=== PATIENT | female | born 1960 | race Asian ===

== ENCOUNTER → 2017-01-28 18:30 | Outpatient (CLI) | payer BC ==
[2013-06-23 13:17] VITALS: BMI 35.1
[~2017-01-28 18:30] MED LIST: COZAAR100 MG PO; DICLOFENAC SODI50 MG PO; FLEXERIL10 MG PO; GLIMEPIRIDE1 MG PO; GLUCOTROL 5 MG T5 MG; NORCO 10/325 TA1 TA1 PO; VERAPAMIL HCL40 MG; VERELAN120 MG PO; VICODIN ES 7.51 EAC1 PO
== END | disposition home or self-care (01) ==
LOC: D.LABREF 18:30
DX: M17.0 Bilateral primary osteoarthritis of knee (principal); Z11.8 Encounter for screening for other infectious and parasitic diseases

== ENCOUNTER 2017-02-17 11:00 | Inpatient (IN) | payer BC ==
[~2017-02-17] VITALS: Ht 149.9 cm; Wt 77.3 kg
--- NOTE | ~2017-02-17 | OP ---
PATIENT NAME: BARNEY WAITE MEDICAL RECORD: [id number] :56 LOCATION:D.[facility] [id number] ADMISSION DATE:02/23/17 SURGEON: GERALDO HERRERA DO OPERATION DATE: 02/23/17 PROCEDURE PERFORMED: Left total knee arthroplasty. INDICATION: The patient is a 56-year-old female who has attempted nonoperative treatment for her severe left knee osteoarthritis. She has attempted all forms of nonoperative management and has failed them. She said she is ready to have the left total knee replacement done. She has received medical clearance by her primary doctor as well. PREPROCEDURE DIAGNOSIS: Left knee endstage osteoarthritis. POSTPROCEDURE DIAGNOSIS: Left knee endstage osteoarthritis. SURGEON: Geraldo Herrera DO WAREHOUSE INCENTIVE SELECTOR: Caitlin Humphries APN DESCRIPTION OF PROCEDURE: The patient had adductor canal block as well as popliteal block by anesthesia. General anesthesia was given to the patient. The patient's left lower extremity was prepped and draped in the usual manner. The tourniquet was elevated to 300 millimeters of mercury. Prior to this, a timeout was performed and all parties were in agreeance that the left knee was the correct knee, and that we had the correct patient in the room. After the tourniquet was inflated, a midline incision through the skin and subcutaneous tissue was done. Hemostasis was obtained with electrocauterization. The quadriceps tendon was split in the middle. The incision was carried medial to the patella and down the tibial tubercle. The fat pad was excised. The anterior third of both the medial and lateral meniscus was excised. A rongeur was placed behind the patella utilizing the patella as a guide. The articular surface of the patella was osteotomized with an oscillating saw. It was measured and marked at that time. The distal femur cut was then performed. At that time the canal was entered in the distal femur and it was irrigated and sucked out to avoid excessive pressure. The distal femur cutting block was then applied and two pins made it secure and 11 millimeters of distal femur was resected. Attention was then drawn to the tibia. Proximal tibia osteotomy cutting guide was used and utilizing external tibia alignment jig and fixed tibial jig with two pins in the proximal tibia. The proximal tibia was then removed along with the posterior two thirds of both the medial and lateral meniscus. Soft tissues were cleaned out. The femur was then readdressed and sized and the 4 in 1 cutting guide was applied and the cuts were made anterior. The chamfer cut as well posteriorly. Trials were then placed on the femur as well as the tibia and the soft tissue was balanced to appropriate size. The proximal tibia sized, drilled and punched. Appropriate size template was affixed to the tibia. After the tibia was prepped, the patella was prepared and the appropriate size was noted. Three drill holes were done in the patella. Cement was then mixed on the back table and the knee was copiously irrigated. Cement was pressurized and applied to cancellous bone as well as the tibial components as well as the patella. Components were put in place, excess cement was removed using osteotome mallet . The knee was held once the cement was placed as well. The trial poly was placed and the knee was held in extension until the cement was hardened. Once the cement hardened, the knee was inspected thoroughly and excess cement was found and removed. Appropriate thickness polyethylene liner was then inserted as well as a clip to hold it in place. The OPERATIVE REPORT [id number] BARNEY WAITE knee was taken through full range of motion and found to be stable in all ranges. The patella was found to track properly. The fascia capsule was reapproximated with multiple interrupted fibjnv-ps-gwyia #2 sutures. The subcutaneous tissue was closed with multiple interrupted 2-0 Vicryl sutures. The skin was then reapproximated with ZipLine dressing, Adaptic, 4x4s, and ABD and Ramy wrap were applied. The patient was transferred from the operating room to recovery room in satisfactory condition having tolerated the procedure well. Total tourniquet time during the procedure was 1 hour and 9 minutes. Blood loss 15 milliliters. Sizes on the components were femur 60; tibia 67; 14 e-poly and 28 patella. GERALDO HERRERA DO CC: [id number] DICTATION DATE: 02/23/17 1400 ELECTRONIC TESTER: KEANU 02/23/17 1528 [facility] [address] [place] [address]
[2017-02-17 12:41] LABS: BASOPHILS 0.6 % (0-2); EOSINOPHILS 1.9 % (0-7); HEMATOCRIT 42.8 % (36.0-48.0); HEMOGLOBIN 14.4 g/dL (12-16); IMMATURE GRANULOCYTES 0.1 % (0-5); LYMPHOCYTES 38.7 % (15-50); MCH 29.4 pg (26.0-34.0); MCHC 33.6 g/dL (31.0-37.0); MCV 87.3 fL (80.0-100.0); MEAN PLATELET VOLUME 8.9 fL (7.4-10.4); MONOCYTES 7.2 % (2-11); NEUTROPHILS 51.5 % (40-80); PLATELET COUNT 257 10x3/uL (130-400)
[2017-02-17 12:48] LABS: CALC OSMOLALITY 287 mosm/kg (275-300); CALCIUM 9.5 mg/dL (8.5-10.1); CARBON DIOXIDE 28.3 mmol/L (21.0-32.0); CHLORIDE - SERUM 106 mmol/L (98-107); CREATININE - SERUM 0.7 mg/dL (0.6-1.3); GLUCOSE 106 mg/dL (74-106); POTASSIUM - SERUM 4.8 mmol/L (3.5-5.1); SODIUM 144 mmol/L (136-145); UREA NITROGEN 14 mg/dL (7-18); eGFR NON AFRICAN AMERICAN > 90 mL/min (90-120)
[2017-02-17 12:54] LABS: APTT 26.7 SECONDS (22.8-39.4); INR 0.92 (0.85-1.17); PROTIME 12.2 SECONDS (11.6-15.0)
[2017-02-17 13:07] LABS: APPEARANCE CLEAR (CLEAR); BILIRUBIN NEGATIVE (NEGATIVE); COLOR YELLOW (YELLOW); GLUCOSE 250 mg/dL (NEGATIVE); KETONE NEGATIVE (NEGATIVE); LEUKOCYTE ESTERASE NEGATIVE (NEGATIVE); NITRITE NEGATIVE (NEGATIVE); PROTEIN NEGATIVE (NEGATIVE); SPECIFIC GRAVITY 1.015 (1.005-1.020); UROBILINOGEN NORMAL (NORMAL)
[2017-02-23] MEDS ORDERED: ACETAMINOPHEN500 M1 PO (06:12)
[2017-02-23] MEDS ORDERED: TOUJEO SOL300 UNIT/1 SC (06:14)
[2017-02-23] MEDS ORDERED: FARXIGA5 MG PO (06:15)
[2017-02-23 06:18] VITALS: BP 156/77; BMI 34.4
--- NOTE | 2017-02-23 08:02 | NUR ---
LEFT LEG AND FOOT WASHED WITH HIBICLENS AND ALCOHOL PRIOR TO CHLORPREP PER LADI
[2017-02-23 10:29] VITALS: BP 116/70
--- NOTE | 2017-02-23 10:58 | NUR ---
PT REC'D FROM RECOVERY VIA BED. ACCOMPANIED BY PACU STAFF. AAOX4. SLIGHTLY DROWSY, BUT EASILY AROUSED. NO COMPLAINTS OF PAIN. ABLE TO MOVE LLE, BUT NOT TOES. NO FEELING TO LLE. EXPLAINED TO PT AND FAMILY AT BEDSIDE THAT THIS TIME NORMAL DUE TO THE BLOCK SHE HAD. +2 PEDAL PULSES BILAT. DRESSING TO LLE CDI WITH ASHANTI HOSE OVER DRESSING. J-LOOP TO PIV IN R FOREARM CHANGED AND CONNECTED TO 1/2NS PER OCT. VSS. BED LOW, CALL LIGHT IN REACH, DENIES NEEDS. CPOC.
--- NOTE | 2017-02-23 12:19 | NUR ---
AT 0955 FSBS 112 MG/DL
--- NOTE | 2017-02-23 13:04 | NUR ---
PT RESTING IN BED WITH DAUGHTER AT BEDSIDE. EYES CLOSED, RESP EVEN AND UNLABORED, NO SIGNS OF DISTRESS, SCD TO R LEG ON, +2 PEDAL PULSES BILAT, AND VSS. BED LOW, CALL LIGHT IN REACH, CPOC.
[2017-02-23 17:31] VITALS: BP 150/66; Ht 149.9 cm; Wt 77.3 kg
--- NOTE | 2017-02-23 19:44 | NUR ---
PT LYING IN BED, EYES CLOSED, EVEN RISE AND FALL OF CHEST. PT FAMILY IN ROOM WITH HER. NO SIGNS OF DISTRESS, BED IN LOW POSITION, NO OTHER NEEDS AT THIS TIME
[2017-02-23 20:00] VITALS: BP 133/59
[2017-02-24] VITALS: BP 126/61
[2017-02-24 04:00] VITALS: BP 150/68
[2017-02-24 06:13] LABS: HEMATOCRIT 39.4 % (36.0-48.0); HEMOGLOBIN 12.8 g/dL (12-16); MCHC 32.5 g/dL (31.0-37.0); MCV 89.3 fL (80.0-100.0); RBC 4.41 10x6/uL (4.00-5.40); RDW 12.1 % (11.5-14.5); WBC 8.1 10x3/uL (4.8-10.8)
[2017-02-24 08:07] VITALS: BP 139/79
--- NOTE | 2017-02-24 08:29 | NUR ---
CPM REMOVED AT THIS TIME. SCD TO RIGHT LEG AND BED ALARM ON. PRN ULTRAM ADMINISTERED FOR PAIN, WELL SCHEDULED MEDICATIONS. DAUGHTER AT BEDSIDE. IV PATENT. CALL LIGHT IN REACH AND INCENTIVE SPIROMETER IN USE. WILL CONTINUE WITH PLAN OF CARE.
--- NOTE | 2017-02-24 11:46 | NUR ---
4 UNITS OF HUMALOG ADMINISTERED FOR BLOOD SUGAR OF 165 PER SLIDING SCALE.
[2017-02-24 12:17] VITALS: BP 142/68
--- NOTE | 2017-02-24 13:51 | NUR ---
Patient Name: BARNEY WAITE Admission Status: Elective Accout number: [id number] Admission Date: 02-23-2017 : 1960 Admission Diagnosis: Attending: DESMOND Current LOS: 1 Anticipated DC Date: Planned Disposition: Home Primary Insurance: [employer] OUT OF STATE Discharge Planning Comments: CM met with patient to assess discharge planning needs. Patient lives at home with her (Ani), who will drive her home at time of discharge. Patient would like to use [facility]. Patient will need a walker at discharge. Patient has 4 steps in her home. Patient states that her CPM machine is at home and set up. CM will continue to follow and assist. PCP: Hien christine Ani (spouse) [phone] [place] Encaser: Richa Ortega * Is the patient Alert and Oriented? Yes 0 * How many steps to enter\exit or inside your home? 4 0 * PCP HIEN 0 * Pharmacy [facility] * Preadmission Environment Home with Family 0 * ADLs Independent 0 * Equipment Shower Chair 0 * List name and contact numbers for known caregivers / representatives who currently or will assist patient after discharge: ANI WAITE (SPOUSE) [phone] 0 * Community resources currently utilized None 0 * Additional services required to return to the preadmission environment? Yes 0 * Can the patient safely return to the preadmission environment? Yes 0 * Has this patient been hospitalized within the prior 30 days at any hospital? No 0 Grand Total: 0
[2017-02-24 16:14] VITALS: BP 131/61
--- NOTE | 2017-02-24 17:12 | NUR ---
PRN PERCOCET ADMINISTERED AT THIS TIME FOR PAIN.
--- NOTE | 2017-02-24 18:05 | NUR ---
CPM APPLIED AT THIS TIME TO LEFT LEG. DENIES FURTHER NEEDS. CALL LIGHT IN REACH.
--- NOTE | 2017-02-24 19:40 | NUR ---
PT IS LYING AWAKE IN BED, CPM ON WITH ONLY 30MINS LEFT, PT NEEDED ASSISTANCE WITH GETTING UP TO BATHROOM, DID VERY WILL WITH USE OF WALKER. BED IN LOW POSITIOM CALL LIGHT WITHIN REACH
[2017-02-24 20:00] VITALS: BP 153/78
[2017-02-25 04:00] VITALS: BP 128/77
[2017-02-25 06:51] LABS: HEMATOCRIT 38.8 % (36.0-48.0); HEMOGLOBIN 12.5 g/dL (12-16); MCH 28.7 pg (26.0-34.0); MCHC 32.2 g/dL (31.0-37.0); MCV 89.2 fL (80.0-100.0); RBC 4.35 10x6/uL (4.00-5.40); RDW 12.1 % (11.5-14.5); WBC 9.2 10x3/uL (4.8-10.8)
[2017-02-25] MEDS ORDERED: PERCOCET 10/3251 TA1 PO (07:55)
[2017-02-25] MEDS ORDERED: ELIQUIS2.5 MG PO (07:55)
--- NOTE | 2017-02-25 08:01 | NUR ---
SCHEDULED MEDICATIONS ADMINISTERED AT THIS TIME WITH PRN PEROCOCET AT THIS TIME. ASSESSMENT PERFORMED PER FLOWSHEET. DAUGHTER AT BEDSIDE. SCD'S AND BED ALARM ON. WILL CONTINUE WITH PLAN OF CARE.
[2017-02-25 08:18] VITALS: BP 159/83
[2017-02-25] MEDS ORDERED: KEFLEX500 MG PO (08:20)
--- NOTE | 2017-02-25 08:40 | NUR ---
CPM REMOVED AT THIS TIME.
--- NOTE | 2017-02-25 10:18 | NUR ---
CM set up outpatient PT at [facility] per patients request. Patient's PT appointment is for WednesdayFebruary 26 at 9:45am appointment card given. Rolling walker ordered from [facility] and will be delivered to hospital
--- NOTE | 2017-02-25 10:21 | NUR ---
patient being discharged today with her to drive home in personal car
--- NOTE | 2017-02-25 10:24 | NUR ---
PRN ULTRAM ADMINISTERED FOR PAIN. UP IN CHAIR PER PHYSICAL THERAPY WITH DAUGHTER AT BEDSIDE. CALL LIGHT IN REACH, WILL CONTINUE WITH PLAN OF CARE.
[2017-02-25 12:49] VITALS: BP 126/68
--- NOTE | 2017-02-25 14:20 | NUR ---
ASHANTI RICHARDSON APPLIED TO BLE. IV TO RIGHT AC D/C WITH CATH TIP INTACT. DISCHARGE PAPERWORK REVIEWED. DENIES QUESTIONS OR CONCERNS. CALL LIGHT IN REACH, WILL CONTINUE WITH PLAN OF CARE.
== END 2017-02-25 14:30 | disposition home or self-care (01) | DRG 470 ==
LOC: D.SDCHOLD 11:00 → D.MS 02-23 05:10 → D.SDCHOLD 02-23 07:30 → D.MS 02-23 10:16 → D.SDCHOLD 02-23 11:00 → D.MS 02-25 14:30
PROVIDERS: ADMIT Orthopaedic Surgery
PROC: 0SRD0J9 Replacement of Left Knee Joint with Synthetic Substitute, Cemented, Open Approach (ICD-10-PCS; principal; 2017-02-23 07:30)
DX: M17.12 Unilateral primary osteoarthritis, left knee (principal); E11.9 Type 2 diabetes mellitus without complications; Z79.4 Long term (current) use of insulin; I10 Essential (primary) hypertension

== ENCOUNTER 2017-05-14 05:35 | Inpatient (IN) | payer BC ==
[2017-05-13 16:00] LABS: APPEARANCE CLEAR (CLEAR); BILIRUBIN NEGATIVE (NEGATIVE); COLOR YELLOW (YELLOW); GLUCOSE 1000 mg/dL (NEGATIVE); KETONE NEGATIVE (NEGATIVE); NITRITE NEGATIVE (NEGATIVE); PROTEIN NEGATIVE (NEGATIVE); SPECIFIC GRAVITY 1.015 (1.005-1.020); UROBILINOGEN NORMAL (NORMAL)
[2017-05-13 16:14] LABS: BASOPHILS 0.6 % (0-2); EOSINOPHILS 4.3 % (0-7); HEMATOCRIT 41.7 % (36.0-48.0); HEMOGLOBIN 13.8 g/dL (12-16); IMMATURE GRANULOCYTES 0.1 % (0-5); LYMPHOCYTES 46.5 % (15-50); MCH 28.3 pg (26.0-34.0); MCHC 33.1 g/dL (31.0-37.0); MCV 85.6 fL (80.0-100.0); MEAN PLATELET VOLUME 8.6 fL (7.4-10.4); MONOCYTES 5.5 % (2-11); PLATELET COUNT 256 10x3/uL (130-400); RBC 4.87 10x6/uL (4.00-5.40); RDW 12.2 % (11.5-14.5); WBC 6.8 10x3/uL (4.8-10.8)
[~2017-05-14 05:35] MED LIST changes: +ACETAMINOPHEN500 M1 PO; +ELIQUIS2.5 MG PO; +FARXIGA5 MG PO; +KEFLEX500 MG PO; +PERCOCET 10/3251 TA1 PO; +TOUJEO SOL300 UNIT/1 SC; +TYLENOL W/CODEI1 TAB PO
[2017-05-14 10:56] VITALS: BP 145/73; BMI 32.4
[2017-05-14 11:58] LABS: CALC OSMOLALITY 282 mosm/kg (275-300); CALCIUM 9.2 mg/dL (8.5-10.1); CARBON DIOXIDE 28.8 mmol/L (21.0-32.0); CHLORIDE - SERUM 104 mmol/L (98-107); CREATININE - SERUM 0.8 mg/dL (0.6-1.3); GLUCOSE 100 mg/dL (74-106); POTASSIUM - SERUM 4.8 mmol/L (3.5-5.1); SODIUM 141 mmol/L (136-145); UREA NITROGEN 18 mg/dL (7-18); eGFR NON AFRICAN AMERICAN 78 mL/min (90-120)
[2017-05-14 18:20] VITALS: BP 104/56
[2017-05-14 18:32] VITALS: BP 104/56; BMI 32.4
--- NOTE | 2017-05-14 19:18 | NUR ---
PT IS LYING IN BED ON RT SIDE, BED IN LOW POSITION CALL LIGHT IN REACH, NOSIGNS OF DISTRESS, SON CAME TO CHECK ON PT. NO OTHER NEEDS AT THIS TIME. CONTINUE WITH CARE PLAN
--- NOTE | 2017-05-14 20:41 | NUR ---
WENT TO GIVE PT SCHEDULED MEDS AND NOTICED PT BPIS TRENDING DOWN SINCE 1900. BP AT 1922 WAS 105/64, 1937-95/49, 1952- 98/58, 2007 -87/54 AND 2022-/, DR HERRERA WAS PT'S SURGEON, CALLED AND WAS ADVISED TO GIVE 500 BOLUS AND IF NO CHANGE GIVE NARCAN. KYLER MOHAN
--- NOTE | 2017-05-14 21:40 | NUR ---
RECIEVED CALL FROM CHECKING ON PT AND V/S. INFORMED HIM BP HAS BEEN TRENDING UP WITH SOME LOW PRESSURES IIN BETWEEN. DR STATED CONTINUE WITH DAILY ROUTINE
--- NOTE | 2017-05-14 21:41 | NUR ---
PT LYING IN BED, EVEN RISE AND FALL OF CHEST, NO SIGNS OF DISTRESS. CONTINUE TO MONITOR
--- NOTE | 2017-05-14 23:35 | NUR ---
ASSESSED, PT IS ASLEEP WITH NO DISTRESS AND EASY RESPIRATIONS. THE CPM MACHINE IS AT THE BEDSIDE, THERE IS NO O2 SET UP. THE BED IS LOW, RAILS UP X'S 2 WITH THE CALL LIGHT AT HAND.
[2017-05-15] VITALS (7 sets, daily range): BP systolic 103–174; BP diastolic 59–86
--- NOTE | 2017-05-15 02:56 | NUR ---
WENT TO ASSIST PT WITH BED DELGADO. PT STATED PAIN AT 4, PT BP IS 82/66TOLD PT NOT GIVING PAIN MED DUE TO BP GOING BACK AND FORTH, SPOKE TO CHARGE NURSE ADVISED TO GIVE HALF OF TORADOL
[2017-05-15 04:49] LABS: HEMATOCRIT 34.5 % (36.0-48.0); HEMOGLOBIN 11.1 g/dL (12-16); MCH 27.7 pg (26.0-34.0); MCHC 32.2 g/dL (31.0-37.0); MEAN PLATELET VOLUME 8.5 fL (7.4-10.4); RBC 4.01 10x6/uL (4.00-5.40); RDW 12.3 % (11.5-14.5); WBC 5.9 10x3/uL (4.8-10.8)
--- NOTE | 2017-05-15 07:40 | NUR ---
PT AOX4 RESP EVEN AND NONLABORED PT DENIES NEEDS AT THIS TIME IV TO RIGHT HAND PATENT AND INTACT AT THIS TIME SRX2 BED AT LOWEST SETTING CALL LIGHT WITHIN REACH WILL CONTINUE TO MONITOR
--- NOTE | 2017-05-15 08:02 | OP ---
PATIENT NAME: BARNEY OLMOS MEDICAL RECORD: [id number] :56 LOCATION:D.[facility] [id number] ADMISSION DATE:05/14/17 SURGEON: CITLALI HERRERA DO DATE OF OPERATION: 05/14/2017 PROCEDURE PERFORMED: Right total knee arthroplasty. PREOPERATIVE DIAGNOSIS: Right knee end-stage degenerative joint disease. POSTOPERATIVE DIAGNOSIS: Right knee end-stage degenerative joint disease. INDICATIONS: Ms. Olmos is a 56-year-old female that presented in my office in February and underwent a left total knee arthroplasty. She had severe varus deformity and severe wsiy-nl-tldg arthritis. Prior to my arrival here, she was on schedule to get a total knee done. She wanted to get the right knee done after the left knee in several weeks after the left knee was done. She was scheduled for this right knee. She understood the risks and benefits of procedure and decided to proceed forth with it. DESCRIPTION OF PROCEDURE: The patient was in the preoperative area, given a block by anesthesia and taken to the operative suite, given general anesthetic and placed in supine position and intubated. The right leg was then identified, prepped and draped. Timeout was performed. The patient was given a gram of Ancef prior to incision. Everyone was in agreement with the timeout with the correct side, site and patient. Once this was done, the incision was marked out in the midline of the anterior knee. The Ioban was then placed around the circumference of her right knee. Once this was done, the leg was elevated, Esmarch was used to exsanguinate the leg and the knee was flexed, and tourniquet was inflated to 350 mmHg. An Esmarch was then removed and an incision was made down to the capsule and a knife was exchanged to do the capsulotomy in a medial parapatellar approach. Once this was done, the fat pad was removed and the knee was extended, and the patella was sized and milled down. The knee was then flexed and retractors were placed medial and lateral to the femur and the femoral canal was entered with a reamer. The distal femur was then cut with the cutting block at 11-mm. After this was done, the tibia was then cut and then extension block was unable to fit and so 2 more millimeters of the tibia were cut. Once this was done, the extension block fit well. The femur was then sized to be 57.5 and a 4-in-1 cutting block guide was placed after the drill holes were made through the sizer. The anterior femur, the anterior chamfer cut, and the posterior, and the posterior chamfer cuts were then made. Once this was done, the trial was put in place and a 10 poly with tibial tray was floated into the knee, ranged, and the rotation was marked. This was then removed. The knee was flexed and the holes were drilled in the femur for the prosthesis. The knee was extended and the patella was drilled. Once this was done, tibia was exposed again with maximal flexion of the knee and sized to be a 63, and tibia was reamed and punched, then irrigated very thoroughly while the cement was mixing. Cement was then placed into the tibia and tibial implant and implanted. The excess cement was removed. It was impacted and excess cement was removed once again. The femur was then placed, a press-fit femur 57.5 was placed and the knee was brought to extension with the poly in between the femur and tibia, and the patella was cemented into place as well, and it was held with the squeezer while the cement dried. Once the cement had hardened, the knee was ranged and the poly was lifting off and deep flexion. The PCL was then pie crusted and a pie was placed, this time with an poly and seemed to be very stable in flexion and extension and be very well balanced. A decision was made OPERATIVE REPORT [id number] BARNEY OLMOS to use a 10 poly on this patient with vitamin E infused. The poly was then placed and the locking mechanism put into place on the tibial tray. Once this was done, the tourniquet was let down at 59 minutes, and after coagulation was made Michael was placed about the knee. The knee was in flexion. Capsule was closed with #1 pop offs in dkygtp-kb-tamzq fashion. The capsule was then irrigated and Michael was placed on that, and then the skin was closed with 2-0 Vicryl in inverted interrupted fashion and a ZipLine was placed on the outer portion of the knee. Once this was done, Adaptic, 4 x 4's, ABD, Webril, Ramy wrap was placed on the knee and knee high ASHANTI hose was placed on the patient. Blood loss was approximately 100 mL and the patient was awakened and taken to recovery in stable condition. TRANSINT:[id number] Voice Confirmation ID: [id number] DOCUMENT ID: [id number] CITLALI HERRERA DO at 0802 CC: [id number] DICTATION DATE: 05/14/171737 MANAGER TITLE: 05/14/17 194 ADM IN [id number] [place] [address]
--- NOTE | 2017-05-15 19:55 | NUR ---
PATIENT RESTING IN BED WITH FAMILY AT BEDSIDE AND DENIES NEEDS AT THIS TIME. BED IN LOWEST POSITION AND CALL LIGHT WITHIN REACH. ENCOURAGED THE PT TO CALL IF SHE HAS NEEDS.
[2017-05-16 04:00] VITALS: BP 158/82
[2017-05-16 06:46] LABS: HEMATOCRIT 36.5 % (36.0-48.0); MCH 27.8 pg (26.0-34.0); MCHC 32.9 g/dL (31.0-37.0); MCV 84.5 fL (80.0-100.0); MEAN PLATELET VOLUME 8.7 fL (7.4-10.4); RBC 4.32 10x6/uL (4.00-5.40); RDW 12.4 % (11.5-14.5); WBC 6.6 10x3/uL (4.8-10.8)
[2017-05-16] MEDS ORDERED: OXYCODONE HCL5 MG PO (07:49)
[2017-05-16] MEDS ORDERED: ELIQUIS2.5 MG PO (07:49)
[2017-05-16] MEDS ORDERED: VITAMIN D31000 UNI2 PO (07:50)
[2017-05-16] MEDS ORDERED: KEFLEX500 MG PO (07:51)
[2017-05-16] MEDS ORDERED: HYDROXYZINE HCL50 MG PO (07:51)
--- NOTE | 2017-05-16 08:05 | NUR ---
PT AOX4 RESP EVEN AND NONLABORED PT DENIES NEEDS AT THIS TIME IV TO LEFT HAND PATENT AND INTACT AT THIS TIME SRX2 BED AT LOWEST SETTING CALL LIGHT WITHIN REACH WILL CONTINUE TO MONITOR
[2017-05-16 08:10] VITALS: BP 178/71
[2017-05-16 11:52] VITALS: BP 143/82
--- NOTE | 2017-05-16 13:42 | NUR ---
PT IV DISCONTINUED WITH CATHETER INTACT AT THIS TIME RIGHT KNEE DRESSING CHANGE DONE WITH INSTRUCTIONS ALONG WITH 5 PRESCIPTIONS HANDED AT THIS TIME
--- NOTE | 2017-05-16 14:06 | NUR ---
PT TAKEN VIA WHEELCHAIR VIA PRIVATE VEHICLE AT THIS TIME.
== END 2017-05-16 14:08 | disposition home or self-care (01) | DRG 470 ==
LOC: D.MS 05:35 → D.SDCHOLD 05:35 → D.MS 17:49
PROVIDERS: Anesthesiology; ADMIT Orthopaedic Surgery
PROC: 0SRC0J9 Replacement of Right Knee Joint with Synthetic Substitute, Cemented, Open Approach (ICD-10-PCS; principal; 2017-05-14 12:30)
DX: M17.11 Unilateral primary osteoarthritis, right knee (principal); E11.9 Type 2 diabetes mellitus without complications; I10 Essential (primary) hypertension

== ENCOUNTER 2017-09-24 08:59 | Day surgery (SDC) | payer OTHER ==
[2017-09-23 10:05] LABS: HEMATOCRIT 44.4 % (36.0-48.0); HEMOGLOBIN 14.9 g/dL (12-16); MCHC 33.6 g/dL (31.0-37.0); MCV 86.4 fL (80.0-100.0); MEAN PLATELET VOLUME 8.6 fL (7.4-10.4); RBC 5.14 10x6/uL (4.00-5.40); RDW 12.2 % (11.5-14.5); WBC 5.1 10x3/uL (4.8-10.8)
[2017-09-23 10:28] LABS: ANION GAP 13.5 mmol/L (8-16); CALCIUM 9.4 mg/dL (8.5-10.1); CARBON DIOXIDE 27.7 mmol/L (21.0-32.0); CREATININE - SERUM 0.9 mg/dL (0.6-1.3); POTASSIUM - SERUM 4.2 mmol/L (3.5-5.1)
[~2017-09-24] VITALS: Ht 149.9 cm; Wt 72.7 kg
--- NOTE | ~2017-09-24 | OP ---
PATIENT NAME: BARNEY OLMOS MEDICAL RECORD: [id number] :56 LOCATION:D.MS [id number] ADMISSION DATE: SURGEON: GERALDO HERRERA DO DATE OF OPERATION: 09/24/2017 PROCEDURE PERFORMED: Bilateral knee arthroscopy with lysis of adhesions and manipulation under anesthesia with injection of SurgiLogix graft. PREOPERATIVE DIAGNOSES: Bilateral knee contracture and stiffness status post bilateral total knee arthroplasties. POSTOPERATIVE DIAGNOSES: Bilateral knee contracture and stiffness status post bilateral total knee arthroplasties. INDICATIONS: Ms. Olmos is a 57-year-old female who underwent left knee replacement in February and the right in May. On the left knee prior to the right knee being done, she had 110 to 120 degrees of flexion and had the right knee done and then both knees. She did not do well after. Did not work on motion and I got stuck at approximately 80 degrees of flexion on both. She is having quite a bit of pain and I told her that we could do this procedure, but she would have to work afterwards in order to get her motion back. She was understanding and wanted to proceed forward with them due to the pain she was having. She wanted some relief. She is aware of the risks and benefits including infection due to the fact that she had total knees in and also risk of fracture and increased pain and need for further surgery, damage to nerves and vessels. She was understanding this and consented to the procedure. SURGEON: Geraldo Herrera DO TOTAL TOURNIQUET TIME: Tourniquet time on the left was 13 minutes. Tourniquet time on the right was 15 minutes. DESCRIPTION OF PROCEDURE: The patient was taken to the operative suite, laid in supine position. Both legs were prepped and draped in sterile fashion with tourniquets above the knees under the drapes. Once this was done, a timeout was performed and everyone was in agreement with the correct site, side, and the patient. The patient received Ancef and vancomycin due to being total knees. The left knee was done first. The lateral portal was established a little too high and then a second lateral portal was established just anterior to that with an 11-blade scalpel and the trocar was introduced into the suprapatellar pouch. Then, a shaver was introduced in the medial portal, which was established with an 11-blade scalpel. There was quite a bit of adhesions seen and these were taken down with a shaver. These were taken down and there was some bleeding and the tourniquet was put up on the left. After these were taken down, the knee was manipulated and tourniquet was let down and the knee was manipulated to 130 degrees of flexion then the same procedure, we did on the right. A lateral portal was established first. The trocar was entered in the suprapatellar pouch and the medial portal was established with a spinal needle at this time and then an 11-blade scalpel and adhesions were taken down. There was lot of adhesions in the suprapatellar pouch along the medial and lateral gutters as well and in the anterior part of the knee. This was all taken down and then the tourniquet was let down. The scope was removed and the knee was manipulated again. The right knee was manipulated as well as the left knee to 130 degrees of flexion with full extension. After this was done, the portal sites were closed with 4-0 Monocryl with a horizontal mattress fashion and then an Adaptic, 4 x 4s, and OPERATIVE REPORT [id number] MARIANN,BARNEY L Tegaderm were placed over the knees and then ABDs, Webril and Army wraps were placed on the knees and stocking actually placed on bilateral knees up to the knee. The patient was awakened and taken to recovery in stable condition. Prior to the dressing being put on the 1 mL of the SurgiLogix graft was placed into each of the knees with 22-gauge needle and then the dressings were put in place. TRANSINT:[id number] Voice Confirmation ID: [id number] DOCUMENT ID: [id number] GERALDO HERRERA DO at 2307 CC: [id number] DICTATION DATE: 09/24/17 1713 [employer] SUPERVISOR: 09/24/17 2245 [facility] [address] [id number]
[~2017-09-24 08:59] MED LIST changes: +HYDROXYZINE HCL50 MG PO; +OXYCODONE HCL5 MG PO; +VITAMIN D31000 UNI2 PO
[2017-09-24 10:52] VITALS: BP 126/58; BMI 32.4
[2017-09-25] VITALS: BP 146/73
[2017-09-25 00:47] VITALS: BP 146/73; Ht 149.9 cm; Wt 72.7 kg
[2017-09-25 04:00] VITALS: BP 156/85
[2017-09-25 07:41] VITALS: BP 133/77
[2017-09-25] MEDS ORDERED: OXYCODONE HCL5 MG PO (11:22)
[2017-09-25] MEDS ORDERED: VISTARIL50 MG PO (11:22)
[2017-09-25] MEDS ORDERED: KEFLEX500 MG PO (11:23)
== END 2017-09-25 12:45 | disposition home or self-care (01) ==
LOC: D.MS 08:59 → D.OPS 08:59 → D.PAN 11:00 → D.OPS 12:15 → D.MS 20:31 → D.OPS 09-25 12:45
PROVIDERS: Anesthesiology
DX: M24.562 Contracture, left knee (principal); M24.561 Contracture, right knee; T84.89XA Other specified complication of internal orthopedic prosthetic devices, implants and grafts, initial encounter; Z96.653 Presence of artificial knee joint, bilateral; Z01.812 Encounter for preprocedural laboratory examination

== ENCOUNTER → 2017-10-27 10:13 | Outpatient (CLI) | payer OTHER ==
[2017-09-25 00:47] VITALS: BMI 32.4
[~2017-10-27 10:13] MED LIST changes: +VISTARIL50 MG PO
== END | disposition home or self-care (01) ==
LOC: D.LABREF 10:13
DX: M25.562 Pain in left knee (principal); M25.561 Pain in right knee

== ENCOUNTER → 2018-05-05 08:10 | Outpatient (CLI) | payer OTHER ==
[2017-09-25 00:47] VITALS: BMI 32.4
== END | disposition home or self-care (01) ==
LOC: D.NM 08:10
DX: M25.562 Pain in left knee (principal)

== ENCOUNTER → 2018-12-09 09:31 | Outpatient (CLI) | payer OTHER ==
[2017-09-25 00:47] VITALS: BMI 32.4
== END | disposition home or self-care (01) ==
LOC: D.NM 09:31
PROVIDERS: ATTEND Nurse Practitioner Family
DX: Z96.653 Presence of artificial knee joint, bilateral (principal)

== ENCOUNTER 2019-04-28 09:00 | Outpatient (CLI) | payer OTHER ==
[2017-09-25 00:47] VITALS: BMI 32.4
== END 2019-04-28 10:00 | disposition home or self-care (01) ==
LOC: D.MAMMO 09:00
PROVIDERS: ATTEND Family Medicine
DX: Z12.31 Encounter for screening mammogram for malignant neoplasm of breast (principal)

== ENCOUNTER 2019-06-15 09:00 | Outpatient (CLI) | payer OTHER ==
[2017-09-25 00:47] VITALS: BMI 32.4
== END 2019-06-15 10:00 | disposition home or self-care (01) ==
LOC: D.MAMMO 09:00
PROVIDERS: ATTEND Nurse Practitioner
DX: R92.2 Inconclusive mammogram (principal)